=== PATIENT | male | born 1985 | race Caucasian/White ===

== ENCOUNTER 2025-11-23 14:40 | Outpatient (CLI) | payer BC | END 2025-11-23 14:41 | disposition home or self-care (01) | LOC: CSHMRI 14:40 | PROVIDERS: ATTEND Family Medicine | DX: M54.16 Radiculopathy, lumbar region (principal); M43.17 Spondylolisthesis, lumbosacral region; M54.17 Radiculopathy, lumbosacral region; M48.061 Spinal stenosis, lumbar region without neurogenic claudication | CPT/HCPCS: 72148 ==